=== PATIENT | female | born 1930 | race Caucasian/White ===

== ENCOUNTER → 2017-02-28 | Outpatient (CLI) | payer OTHER, SELFPAY ==
[~2017-02-28] MED LIST: ALEN70 PO; AMLO5 PO; ATOR10 PO; CEFD300 PO; LISI5 PO; Lasix40 MG PO; MECL25 PO; OMEP20ER PO; POTCHL10ER PO; SIMV40 PO
[2017-02-28 14:57] LABS: Microalbumin, Urine Quant. <5.000 mg/L (0.000-20.000); Protein, Urine Quantitative <5.0 mg/dL (0.0-11.9)
== END ==
LOC: LAB 06:30 → LAB SHORT 06:30 → LAB FUT 02-14 14:20
PROVIDERS: Internal Medicine Nephrology
DX: N18.3 Chronic kidney disease, stage 3 (moderate) (principal); D63.1 Anemia in chronic kidney disease; R10.9 Unspecified abdominal pain; N39.0 Urinary tract infection, site not specified
CPT/HCPCS: 81050; 82043; 84156